=== PATIENT | female | born 1975 | race Asian ===

== ENCOUNTER 2017-09-11 19:54 | Emergency (ER) | payer BC ==
[2017-09-11] MEDS ORDERED: Lactated Ringers 1,000 ML IV SCH (20:30)
--- NOTE | 2017-09-11 20:36 | EDM.PDOC ---
ED HPI GENERAL MEDICAL PROBLEM - General Chief Complaint: General Stated Complaint: "MY ARMS AND FINGERS ARE TINGLING" Time Seen by Provider: 09/11/17 20:15 Source of Information: Reports: Patient, Family () History Limitations: Reports: No Limitations - History of Present Illness INITIAL COMMENTS - FREE TEXT/NARRATIVE: [place] and she started having numbness and tingling to the upper extremities. She then felt SOB and her chest heavy. Was feeling lightheaded and felt like she was going to pass out. When she arrived here she still had tingling to the upper extremities bilaterally. She had some shaking of her left leg. She states that she had a headache earlier today and took advil and it helped. DOes have some chronic neck pain at times but she doesn't feel like it is any worse than normal. She denies any trauma to her neck. States that she has been feeling like something is making it difficult for her to swallow on the left side of her neck. Has been bothering her for several weeks and was planning on making appt to be seen for it soon. Has not had any fevers or chills. Denies any back pain. Does have history of gestational diabetes and has not had problem with it since. Denies any abdominal pain, diarrhea. or generalized weakness. No visual changes noted. Onset: Sudden Location: Reports: Generalized Associated Symptoms: Reports: Shortness of Breath - Related Data Allergies Allergy/AdvReac Type Severity Reaction Status Date / Time No Known Allergies Allergy Verified 09/11/17 20:17 Home Meds: Home Meds buPROPion HCl [Wellbutrin Xl] 300 mg PO DAILY 09/11/17 [History] Past Medical History Psychiatric History: Reports: Depression Endocrine/Metabolic History: Reports: Diabetes, Gestational Social & Family History - Tobacco Use Smoking Status *Q: Never Smoker ED ROS GENERAL - Review of Systems Review Of Systems: See Below Constitutional: Denies: Fever, Chills HEENT: Reports: No Symptoms Respiratory: Reports: Shortness of Breath. Denies: Cough Cardiovascular: Reports: Chest Pain, Lightheadedness. Denies: Edema GI/Abdominal: Reports: No Symptoms Musculoskeletal: Reports: Neck Pain Skin: Reports: No Symptoms Neurological: Reports: Numbness (to upper extremities.), Tingling (to upper extremities.) ED EXAM, GENERAL - Physical Exam Exam: See Below Exam Limited By: No Limitations General Appearance: Alert, WD/WN, No Apparent Distress Eye Exam: Bilateral Eye: PERRL Ears: Normal External Exam, Normal Canal, Normal TMs Nose: Normal Inspection Throat/Mouth: Normal Inspection, Normal Oropharynx, Normal Voice, No Airway Compromise Head: Atraumatic, Normocephalic Neck: Normal Inspection, Supple, Non-Tender, Full Range of Motion Respiratory/Chest: No Respiratory Distress, Lungs Clear, Normal Breath Sounds Cardiovascular: Regular Rate, Rhythm, No Edema, No Murmur GI/Abdominal: Normal Bowel Sounds, Soft, Non-Tender, No Organomegaly Back Exam: Normal Inspection, Full Range of Motion Extremities: Normal Inspection, Normal Range of Motion, Non-Tender, No Pedal Edema, Normal Capillary Refill Neurological: Alert, Oriented Skin Exam: Warm, Dry, Intact Course - Vital Signs Last Recorded V/S: Last Vital Signs Temp 98.6 F 09/11/17 20:23 Pulse 103 H 09/11/17 20:23 Resp 24 H 09/11/17 20:23 BP 97/73 09/11/17 20:23 Pulse Ox 100 09/11/17 20:23 - Orders/Labs/Meds Orders: Active Orders 24 hr Category Date Time Status Chest 2V [CR] Stat Exams 09/11/17 20:20 Taken UA W/MICROSCOPIC [URIN] Stat Lab 09/11/17 20:41 Ordered Lactated Ringers [Ringers, Lactated] 1,000 ml Med 09/11/17 20:30 Active IV ASDIRECTED Medication Orders Lactated Ringer's (Ringers, Lactated) 1,000 mls @ 100 mls/hr IV ASDIRECTED CHUCKY Last Admin: 09/11/17 20:40 Dose: 100 mls/hr Labs: Laboratory Tests 09/11/17 09/11/17 09/11/17 Range/Units 20:26 20:26 20:26 WBC 9.2 (5.0-10.0) 10^3/uL RBC 4.94 (4.00-5.50) 10^6/uL Hgb 13.4 (12.0-16.0) g/dL Hct 40.0 (37.0-47.0) % MCV 81.0 L (82.0-94.0) fL MCH 27.1 (27.0-32.0) pg MCHC 33.5 (33.0-38.0) g/dL RDW Coeff of Myrna 13.5 (11.0-15.0) % Plt Count 284 (150-400) 10^3/uL Neut % (Auto) 49.1 (35-85) % Lymph % (Auto) 44.4 (10-55) % [place] % (Auto) 6.1 (0-16) % Eos % (Auto) 0.3 (0-5) % Baso % (Auto) 0.1 (0-3) % Neut # (Auto) 4.54 (1.80-7.00) 10^3/uL Lymph # (Auto) 4.10 (1.00-4.80) 10^3/uL [place] # (Auto) 0.56 (0.00-0.80) 10^3/uL Eos # (Auto) 0.03 (0.00-0.45) 10^3/uL Baso # (Auto) 0.01 10^3/uL D-Dimer, Quantitative < 0.19 (0.00-0.50) Sodium 135 L (136-145) mEq/L Potassium 3.1 L D (3.5-5.0) mEq/L Chloride 99 (98-106) mEq/L Carbon Dioxide 23 (21-32) mmol/L BUN 19 H (7-18) mg/dL Creatinine 0.9 (0.6-1.0) mg/dL Est Cr Clr Drug Dosing TNP Estimated GFR (MDRD) > 60 (>=60) mL/min Glucose 113 H D (75-99) mg/dL Calcium 9.0 (8.4-10.1) mg/dL Magnesium 1.6 L (1.8-2.4) mg/dL Total Bilirubin 0.4 (0.0-1.0) mg/dL AST 18 (15-37) U/L ALT 27 (12-78) U/L Alkaline Phosphatase 72 (46-116) U/L Lactate Dehydrogenase 129 (100-190) U/L Creatine Kinase 80 (21-215) U/L Troponin I < 0.017 (0.00-0.06) ng/mL C-Reactive Protein < 0.2 L (0.2-0.8) mg/dL Total Protein 7.5 (6.4-8.2) g/dL Albumin 3.9 (3.4-5.0) g/dL TSH, Ultra Sensitive 1.86 (0.36-5.60) uIU/mL Urine Color (YELLOW) Urine Appearance (CLEAR) Urine pH (4.5-8.0) Ur Specific [place] (1.003-1.020) Urine Protein (NEGATIVE) mg/dL Urine Glucose (UA) (NEGATIVE) mg/dL Urine Ketones (NEGATIVE) mg/dL Urine Occult Blood (NEGATIVE) Urine Nitrite (NEGATIVE) Urine Bilirubin (NEGATIVE) Urine Urobilinogen (0.2-1.0) EU/dL Ur Leukocyte Esterase (NEGATIVE) Urine RBC (0-5) /HPF Urine WBC (0-5) /HPF Urine WBC Clumps (NOT SEEN) /HPF Ur Epithelial Cells (NOT SEEN) /HPF 09/11/17 Range/Units 20:41 WBC (5.0-10.0) 10^3/uL RBC (4.00-5.50) 10^6/uL Hgb (12.0-16.0) g/dL Hct (37.0-47.0) % MCV (82.0-94.0) fL MCH (27.0-32.0) pg MCHC (33.0-38.0) g/dL RDW Coeff of Myrna (11.0-15.0) % Plt Count (150-400) 10^3/uL Neut % (Auto) (35-85) % Lymph % (Auto) (10-55) % [place] % (Auto) (0-16) % Eos % (Auto) (0-5) % Baso % (Auto) (0-3) % Neut # (Auto) (1.80-7.00) 10^3/uL Lymph # (Auto) (1.00-4.80) 10^3/uL [place]eker # (Auto) (0.00-0.80) 10^3/uL Eos # (Auto) (0.00-0.45) 10^3/uL Baso # (Auto) 10^3/uL D-Dimer, Quantitative (0.00-0.50) Sodium (136-145) mEq/L Potassium (3.5-5.0) mEq/L Chloride (98-106) mEq/L Carbon Dioxide (21-32) mmol/L BUN (7-18) mg/dL Creatinine (0.6-1.0) mg/dL Est Cr Clr Drug Dosing Estimated GFR (MDRD) (>=60) mL/min Glucose (75-99) mg/dL Calcium (8.4-10.1) mg/dL Magnesium (1.8-2.4) mg/dL Total Bilirubin (0.0-1.0) mg/dL AST (15-37) U/L ALT (12-78) U/L Alkaline Phosphatase (46-116) U/L Lactate Dehydrogenase (100-190) U/L Creatine Kinase (21-215) U/L Troponin I (0.00-0.06) ng/mL C-Reactive Protein (0.2-0.8) mg/dL Total Protein (6.4-8.2) g/dL Albumin (3.4-5.0) g/dL TSH, Ultra Sensitive (0.36-5.60) uIU/mL Urine Color Yellow (YELLOW) Urine Appearance Clear (CLEAR) Urine pH 7.0 (4.5-8.0) Ur Specific [place] 1.010 (1.003-1.020) Urine Protein Negative (NEGATIVE) mg/dL Urine Glucose (UA) Negative (NEGATIVE) mg/dL Urine Ketones Negative (NEGATIVE) mg/dL Urine Occult Blood Trace-intact H (NEGATIVE) Urine Nitrite Negative (NEGATIVE) Urine Bilirubin Negative (NEGATIVE) Urine Urobilinogen 0.2 (0.2-1.0) EU/dL Ur Leukocyte Esterase Negative (NEGATIVE) Urine RBC 0-5 (0-5) /HPF Urine WBC Not seen (0-5) /HPF Urine WBC Clumps Not seen (NOT SEEN) /HPF Ur Epithelial Cells Few H (NOT SEEN) /HPF Meds: Medications Generic Name Dose Route Start Last Admin Trade Name Freq PRN Reason Stop Dose Admin Lactated Ringer's 1,000 mls @ 100 mls/hr 09/11/17 20:30 09/11/17 20:40 Ringers, Lactated IV 100 mls/hr ASDIRECTED CHUCKY Administration Discontinued Medications Generic Name Dose Route Start Last Admin Trade Name Freq PRN Reason Stop Dose Admin Lactated Ringer's Confirm 09/11/17 20:16 Ringers, Lactated Administered 04/26/18 20:17 Dose 1,000 mls @ as directed .ROUTE .[facility] - Re-Assessments/Exams Free Text/Narrative Re-Assessment/Exam: 09/11/17 21:20 In to discuss normal labs and EKG, CXR with pt and . Discussed that potassium and magnesium were slightly decreased and that all other labs were normal. She is feeling better and numbness and tingling is now gone. Departure - Departure Time of Disposition: 21:18 Disposition: Home, Self-Care 01 Condition: Good Clinical Impression: Anxiety - Discharge Information Forms: ED Department Discharge Additional Instructions: Magnesium supplement over the counter daily If swallowing still bothers then may need to have US of thyroid in the future Tylenol or advil for neck pain as needed recheck if symptoms return - Problem List & Annotations (1) Anxiety SNOMED Code(s): 41410842 Code(s): F41.9 - ANXIETY DISORDER, UNSPECIFIED Status: Acute Priority: High - Problem List Review Problem List Initiated/Reviewed/Updated: Yes - My Orders Last 24 Hours: My Active Orders 09/11/17 20:20 Chest 2V [CR] Stat 09/11/17 20:30 Lactated Ringers [Ringers, Lactated] 1,000 ml IV ASDIRECTED 09/11/17 20:41 UA W/MICROSCOPIC [URIN] Stat - Assessment/Plan Last 24 Hours: My Active Orders 09/11/17 20:20 Chest 2V [CR] Stat 09/11/17 20:30 Lactated Ringers [Ringers, Lactated] 1,000 ml IV ASDIRECTED 09/11/17 20:41 UA W/MICROSCOPIC [URIN] Stat
[2017-09-11] MEDS: Lactated Ringers 1,000 ML ONE ×2 (20:37→22:18)
[2017-09-11 20:51] LABS: CHLORIDE,CL 99 mEq/L (98-106); SODIUM,NA 135 mEq/L (136-145)
== END 2017-09-11 21:34 | disposition home or self-care (01) ==
LOC: CC.ED 19:54
DX: F41.9 Anxiety disorder, unspecified (principal); F32.9 Major depressive disorder, single episode, unspecified
CPT/HCPCS: 36415; 71046; 80053; 81001; 82550; 83615; 83735; 84443; 84484; 85025; 85379; 86140; 93005; 96360; 99284; J7120